=== PATIENT | female | born 1980 | race Caucasian/White ===

== ENCOUNTER 2019-12-23 12:10 | Inpatient (IN) ==
[2019-12-23] MEDS ORDERED: Naloxone 0.4 MG/ML INJ IVP PRN (14:34)
[2019-12-23] MEDS ORDERED: Ondansetron 4 MG/2 ML VIAL IVP PRN (14:34)
[2019-12-23] MEDS ORDERED: Dextrose Gel 15 GM/37.5 ML TUBE PO PRN ×2 (14:36)
[2019-12-23] MEDS ORDERED: *HR* Dextrose 50 % in Water (Syg) 50 ML SYRINGE IVP PRN (14:36)
[2019-12-23] MEDS ORDERED: D5% in Water 1,000 ML IVC PRN (14:36)
[2019-12-23] MEDS: amLODIPine 5 MG TABLET PO SCH (16:04)
[2019-12-23] MEDS: Gabapentin 300 MG CAPSULE PO SCH ×2 (16:04→20:36)
[2019-12-23] MEDS: Insulin LISPRO 300 UNITS/3 ML VIAL SQ SCH ×2 (17:35→17:36)
[2019-12-23] MEDS: *HR* Heparin 5,000 UNIT/ML VIAL SQ SCH (17:35)
[2019-12-23] MEDS: Doxycycline 100 MG in 0.9 % Sodium Chloride Mini Bag 100 ML IVPB SCH (17:35)
[2019-12-23] MEDS: Insulin DETEMIR 100 UNIT/ML X5UNITS SQ SCH (20:36)
[2019-12-24] MEDS: Doxycycline 100 MG in 0.9 % Sodium Chloride Mini Bag 100 ML IVPB SCH ×2 (05:48→17:39)
[2019-12-24] MEDS: *HR* Heparin 5,000 UNIT/ML VIAL SQ SCH ×2 (05:49→17:38)
[2019-12-24 05:50] LABS: Hematocrit 38.1 % (35.3-44.9); Mean Corpuscular HGB Conc 31.5 g/dL (31.6-35.5); Platelet Count 186 K/mcL (140-400); Red Blood Count 4.28 M/mcL (3.82-4.97); White Blood Count 7.6 K/mcL (4.3-11.1)
[2019-12-24 05:54] LABS: INR 1.2; Prothrombin Time 13.9 Seconds (9.4-12.1)
[2019-12-24 05:57] LABS: Activated Partial Thrombo Time 35.8 Seconds (26.0-36.0)
[2019-12-24 06:11] LABS: Calcium 7.6 mg/dL (8.6-10.3); Magnesium 1.8 mg/dL (1.6-2.6); Phosphorous 4.4 mg/dL (2.7-4.5); Potassium 3.9 mEq/L (3.5-5.1)
[2019-12-24 06:14] LABS: Chol/HDL Ratio 4.5 (0-4.9)
[2019-12-24] MEDS: Insulin DETEMIR 100 UNIT/ML X5UNITS SQ SCH ×2 (09:38→20:14)
[2019-12-24] MEDS: amLODIPine 5 MG TABLET PO SCH (09:38)
[2019-12-24] MEDS: Gabapentin 300 MG CAPSULE PO SCH ×3 (09:38→20:14)
[2019-12-24] MEDS: Insulin LISPRO 300 UNITS/3 ML VIAL SQ SCH ×6 (09:38→16:49)
[2019-12-25 04:24] LABS: Calcium 7.5 mg/dL (8.6-10.3); Magnesium 1.7 mg/dL (1.6-2.6); Potassium 4.2 mEq/L (3.5-5.1)
[2019-12-25] MEDS: Doxycycline 100 MG in 0.9 % Sodium Chloride Mini Bag 100 ML IVPB SCH ×2 (05:50→17:13)
[2019-12-25] MEDS: *HR* Heparin 5,000 UNIT/ML VIAL SQ SCH ×2 (05:50→17:13)
[2019-12-25] MEDS: Insulin LISPRO 300 UNITS/3 ML VIAL SQ SCH ×6 (09:51→17:12)
[2019-12-25] MEDS: Insulin DETEMIR 100 UNIT/ML X5UNITS SQ SCH ×2 (09:52→20:54)
[2019-12-25] MEDS: Gabapentin 300 MG CAPSULE PO SCH ×3 (09:52→20:54)
[2019-12-25] MEDS: amLODIPine 5 MG TABLET PO SCH (09:52)
[2019-12-26] MEDS ORDERED: Furosemide 20 MG/2 ML VIAL IVP ONE (00:27)
[2019-12-26] MEDS ORDERED: Levalbuterol Neb 0.63 MG/3 ML IH ONE (00:30)
[2019-12-26 04:07] LABS: Calcium 7.9 mg/dL (8.6-10.3); Magnesium 1.7 mg/dL (1.6-2.6); Phosphorous 5.8 mg/dL (2.7-4.5); Potassium 4.2 mEq/L (3.5-5.1)
[2019-12-26] MEDS: *HR* Heparin 5,000 UNIT/ML VIAL SQ SCH ×2 (04:44→17:00)
[2019-12-26] MEDS: Doxycycline 100 MG in 0.9 % Sodium Chloride Mini Bag 100 ML IVPB SCH ×2 (04:50→17:00)
[2019-12-26 08:16] LABS: Potassium 4.4 mEq/L (3.5-5.1)
[2019-12-26] MEDS: Insulin LISPRO 300 UNITS/3 ML VIAL SQ SCH ×6 (08:57→17:01)
[2019-12-26] MEDS: Insulin DETEMIR 100 UNIT/ML X5UNITS SQ SCH ×2 (08:59→20:26)
[2019-12-26] MEDS: Gabapentin 300 MG CAPSULE PO SCH ×3 (09:00→20:26)
[2019-12-26] MEDS: amLODIPine 5 MG TABLET PO SCH (09:00)
[2019-12-26] MEDS ORDERED: hydrALAZINE 25 MG TABLET PO SCH ×2 (12:00→16:00)
[2019-12-26 12:17] LABS: Bilirubin,Urine Negative (Negative); Blood,Urine Small (Negative); Clarity,Urine Cloudy (Clear); Color,Urine Yellow (Yellow); Glucose,Urine (UA) 250 mg/dL (Normal); Ketones,Urine Negative (Negative); Leukocyte Esterase,Urine Negative (Negative); Nitrite,Urine Negative (Negative); PH,Urine 5.5 pH Units (5.0-8.0); Protein,Urine >=300 mg/dL (Neg-Trace); Specific Gravity,Urine 1.018 (1.010-1.025); Urobilinogen,Urine Normal (Normal)
[2019-12-26 12:19] LABS: Squamous Epithelial Cell,Urine Many per lpf (None-Few)
[2019-12-26 12:26] LABS: Bacteria,Urine Moderate per hpf (None-Few); Hyaline Casts,Urine None Seen per lpf (None-Few)
[2019-12-26 12:39] LABS: Chloride,Urine < 15 mEq/L; Potassium,Urine 3.9 mEq/L
[2019-12-26 13:29] LABS: Calcium 8.1 mg/dL (8.6-10.3); Potassium 4.6 mEq/L (3.5-5.1)
[2019-12-26] MEDS: hydrALAZINE 25 MG TABLET PO SCH (20:26)
[2019-12-27] MEDS: *HR* Heparin 5,000 UNIT/ML VIAL SQ SCH ×2 (05:00→16:49)
[2019-12-27] MEDS: hydrALAZINE 25 MG TABLET PO SCH ×3 (05:00→21:34)
[2019-12-27] MEDS: Doxycycline 100 MG in 0.9 % Sodium Chloride Mini Bag 100 ML IVPB SCH (05:01)
[2019-12-27 06:04] LABS: Basophils % 0.2 %; Eosinophils # 0.2 K/mcL (0.0-0.6); Eosinophils % 2.1 %; Hemoglobin 10.9 g/dL (11.5-15.4); Immature Granulocytes % 0.2 % (0-4); Lymphocytes % 24.8 %; Mean Corpuscular HGB Conc 31.1 g/dL (31.6-35.5); Mean Corpuscular Hemoglobin 27.9 pg (28.0-33.3); Mean Corpuscular Volume 89.5 fL (83.0-100.0); Monocytes # 0.8 K/mcL (0.0-1.3); Monocytes % 10.2 %; Neutrophils # 5.1 K/mcL (1.6-8.9); Platelet Count 175 K/mcL (140-400); Red Blood Count 3.91 M/mcL (3.82-4.97); Red Cell Distribution Width 12.6 % (11.5-14.5); Segmented Neutrophils % 62.5 %; White Blood Count 8.2 K/mcL (4.3-11.1)
[2019-12-27 06:23] LABS: Magnesium 1.7 mg/dL (1.6-2.6); Phosphorous 6.1 mg/dL (2.7-4.5); Potassium 4.5 mEq/L (3.5-5.1)
[2019-12-27] MEDS: Gabapentin 300 MG CAPSULE PO SCH ×3 (07:50→21:34)
[2019-12-27] MEDS: amLODIPine 5 MG TABLET PO SCH (07:50)
[2019-12-27] MEDS: Insulin LISPRO 300 UNITS/3 ML VIAL SQ SCH ×6 (07:51→16:48)
[2019-12-27] MEDS: Insulin DETEMIR 100 UNIT/ML X5UNITS SQ SCH ×2 (07:54→21:41)
[2019-12-27 10:36] LABS: Creatinine,Urine 70 mg/dL
[2019-12-27 16:13] LABS: Iron < 10 mcg/dL (50-170); Transferrin 186 mg/dL (203-362)
[2019-12-27] MEDS: Doxycycline 100 MG CAPSULE PO SCH (21:33)
[2019-12-28] MEDS ORDERED: Acetaminophen 325 MG TABLET PO PRN (01:03)
[2019-12-28 04:54] LABS: Calcium 8.1 mg/dL (8.6-10.3); Magnesium 1.7 mg/dL (1.6-2.6); Potassium 4.7 mEq/L (3.5-5.1)
[2019-12-28] MEDS: *HR* Heparin 5,000 UNIT/ML VIAL SQ SCH ×2 (05:44→18:14)
[2019-12-28] MEDS: hydrALAZINE 25 MG TABLET PO SCH ×3 (05:44→20:05)
[2019-12-28] MEDS: Insulin LISPRO 300 UNITS/3 ML VIAL SQ SCH ×6 (09:44→18:12)
[2019-12-28] MEDS: Doxycycline 100 MG CAPSULE PO SCH ×2 (09:45→20:05)
[2019-12-28] MEDS: Gabapentin 300 MG CAPSULE PO SCH ×3 (09:45→20:05)
[2019-12-28] MEDS: amLODIPine 5 MG TABLET PO SCH (09:45)
[2019-12-28] MEDS: Insulin DETEMIR 100 UNIT/ML X5UNITS SQ SCH ×2 (09:47→20:05)
[2019-12-28] MEDS ORDERED: 0.9 % Sodium Chloride 500 ML IVC SCH (12:45)
[2019-12-28] MEDS ORDERED: Ferumoxytol 510 MG in 0.9 % Sodium Chloride 100 ML IVPB ONE (16:57)
[2019-12-29 04:23] LABS: Basophils % 0.2 %; Eosinophils # 0.2 K/mcL (0.0-0.6); Hematocrit 35.6 % (35.3-44.9); Hemoglobin 10.9 g/dL (11.5-15.4); Immature Granulocytes % 0.4 % (0-4); Lymphocytes # 2.3 K/mcL (0.6-4.6); Lymphocytes % 27.1 %; Mean Corpuscular HGB Conc 30.6 g/dL (31.6-35.5); Mean Corpuscular Volume 88.1 fL (83.0-100.0); Mean Platelet Volume 12.9 fL (9.4-12.4); Monocytes % 11.4 %; Neutrophils # 4.9 K/mcL (1.6-8.9); Platelet Count 208 K/mcL (140-400); Red Blood Count 4.04 M/mcL (3.82-4.97); Red Cell Distribution Width 12.5 % (11.5-14.5); Segmented Neutrophils % 58.9 %; White Blood Count 8.3 K/mcL (4.3-11.1)
[2019-12-29 04:39] LABS: Calcium 8.5 mg/dL (8.6-10.3); Potassium 4.6 mEq/L (3.5-5.1)
[2019-12-29] MEDS: *HR* Heparin 5,000 UNIT/ML VIAL SQ SCH ×2 (05:46→16:38)
[2019-12-29] MEDS: hydrALAZINE 25 MG TABLET PO SCH ×3 (05:47→20:35)
[2019-12-29] MEDS: Insulin DETEMIR 100 UNIT/ML X5UNITS SQ SCH ×2 (09:47→20:35)
[2019-12-29] MEDS: Gabapentin 300 MG CAPSULE PO SCH ×2 (09:47→20:35)
[2019-12-29] MEDS: amLODIPine 5 MG TABLET PO SCH (09:47)
[2019-12-29] MEDS: Insulin LISPRO 300 UNITS/3 ML VIAL SQ SCH ×6 (09:48→16:38)
[2019-12-29] MEDS: Doxycycline 100 MG CAPSULE PO SCH (10:03)
[2019-12-29] MEDS: cefTRIAXone 1,000 MG in Water for inj. (sterile) 10 ML IVP SCH (10:15)
[2019-12-30 00:52] LABS: Protein/Creatinine Ratio,Urine 5.04 mg/mg (0.00-0.20)
[2019-12-30] MEDS ORDERED: Levalbuterol Neb 1.25 MG/3 ML IH ONE (01:50)
[2019-12-30] MEDS ORDERED: Levalbuterol Neb 1.25 MG/3 ML ONE (01:58)
[2019-12-30 03:45] LABS: Basophils % 0.3 %; Eosinophils # 0.2 K/mcL (0.0-0.6); Eosinophils % 2.1 %; Hematocrit 34.4 % (35.3-44.9); Hemoglobin 10.7 g/dL (11.5-15.4); Immature Granulocytes % 0.2 % (0-4); Lymphocytes # 2.4 K/mcL (0.6-4.6); Lymphocytes % 25.6 %; Mean Corpuscular HGB Conc 31.1 g/dL (31.6-35.5); Mean Corpuscular Hemoglobin 27.4 pg (28.0-33.3); Mean Corpuscular Volume 88.2 fL (83.0-100.0); Mean Platelet Volume 12.5 fL (9.4-12.4); Monocytes # 1.1 K/mcL (0.0-1.3); Monocytes % 11.9 %; Neutrophils # 5.7 K/mcL (1.6-8.9); Platelet Count 209 K/mcL (140-400); Red Cell Distribution Width 12.5 % (11.5-14.5); Segmented Neutrophils % 59.9 %; White Blood Count 9.5 K/mcL (4.3-11.1)
[2019-12-30 04:05] LABS: Calcium 8.5 mg/dL (8.6-10.3); Magnesium 1.7 mg/dL (1.6-2.6); Phosphorous 6.4 mg/dL (2.7-4.5); Potassium 4.4 mEq/L (3.5-5.1)
[2019-12-30] MEDS: *HR* Heparin 5,000 UNIT/ML VIAL SQ SCH (05:19)
[2019-12-30] MEDS: hydrALAZINE 25 MG TABLET PO SCH ×2 (05:19→12:35)
[2019-12-30] MEDS: Insulin LISPRO 300 UNITS/3 ML VIAL SQ SCH ×4 (09:25→12:35)
[2019-12-30] MEDS: amLODIPine 5 MG TABLET PO SCH (09:26)
[2019-12-30] MEDS: cefTRIAXone 1,000 MG in Water for inj. (sterile) 10 ML IVP SCH (09:26)
[2019-12-30] MEDS: Gabapentin 300 MG CAPSULE PO SCH (09:26)
[2019-12-30] MEDS: Insulin DETEMIR 100 UNIT/ML X5UNITS SQ SCH (09:30)
[2019-12-30 11:31] VITALS: BP 148/89
[2019-12-30 11:44] LABS: Hepatitis B Surface Antibody < 3.10 mIU/mL
[2019-12-30 11:53] LABS: Hepatitis B Surface Antigen Nonreactive (Nonreactive)
[2019-12-30 12:22] LABS: Hepatitis B Core IgM Nonreactive (Nonreactive)
== END 2019-12-30 13:48 | DRG 469 ==
LOC: 2ANU → SUATTDRO 14:34
PROVIDERS: ADMIT Internal Medicine; ATTEND Internal Medicine